=== PATIENT | female | born 1975 | race Caucasian/White ===

== ENCOUNTER 2019-09-24 16:16 | Inpatient (IN) ==
[2019-09-24] MEDS ORDERED: 0.9 % Sodium Chloride 1,000 ML IVC ONE (17:03)
[2019-09-24] MEDS ORDERED: Isovue-370 500 ML BOTTLE IVP ONE (17:31)
[2019-09-24 17:38] LABS: Bilirubin,Urine Negative (Negative); Blood,Urine Trace (Negative); Clarity,Urine Cloudy (Clear); Color,Urine Yellow (Yellow); Glucose,Urine (UA) Normal (Normal); Ketones,Urine Negative (Negative); Leukocyte Esterase,Urine Negative (Negative); Nitrite,Urine Negative (Negative); Protein,Urine Negative (Neg-Trace); Specific Gravity,Urine 1.012 (1.010-1.025); Urobilinogen,Urine Normal (Normal)
[2019-09-24 17:42] LABS: Bacteria,Urine None Seen per hpf (None-Few); Hyaline Casts,Urine None Seen per lpf (None-Few); RBC,Urine 0-3 per hpf (0-3); Squamous Epithelial Cell,Urine Moderate per lpf (None-Few); WBC,Urine 0-3 per hpf (0-3)
[2019-09-24 18:09] LABS: Amorphous Sediment,Urine Few (Few)
[2019-09-24 18:10] LABS: Basophils # 0.1 K/mcL (0.0-0.2); Basophils % 0.6 %; Eosinophils # 0.1 K/mcL (0.0-0.6); Hematocrit 39.6 % (35.3-44.9); Hemoglobin 13.2 g/dL (11.5-15.4); Immature Granulocytes % 0.3 % (0-4); Lymphocytes % 38.1 %; Mean Corpuscular HGB Conc 33.3 g/dL (31.6-35.5); Mean Corpuscular Volume 102.1 fL (83.0-100.0); Mean Platelet Volume 9.8 fL (9.4-12.4); Monocytes # 0.5 K/mcL (0.0-1.3); Monocytes % 6.7 %; Neutrophils # 4.2 K/mcL (1.6-8.9); Platelet Count 268 K/mcL (140-400); Red Blood Count 3.88 M/mcL (3.82-4.97); Red Cell Distribution Width 13.4 % (11.5-14.5); Segmented Neutrophils % 53.3 %; White Blood Count 7.9 K/mcL (4.3-11.1)
[2019-09-24] MEDS ORDERED: *HR* FentaNYL (PF) 100 MCG/2 ML VIAL IVP ONE (18:15)
[2019-09-24 18:18] LABS: Alanine Aminotransferase 10 Units/L (7-52); Albumin 4.8 g/dL (3.5-5.7); Albumin/Globulin Ratio 1.8 (1.1-2.2); Alkaline Phosphatase 72 Units/L (34-104); Aspartate Amino Transferase 16 Units/L (13-39); BUN/Creatinine Ratio 11 (6-26); Bilirubin,Total 0.4 mg/dL (0.3-1.0); Blood Urea Nitrogen 8 mg/dL (6-20); Calcium 9.8 mg/dL (8.6-10.3); Carbon Dioxide 26 mEq/L (23-29); Chloride 104 mEq/L (98-107); Globulin 2.7 g/dL (2.4-3.5); Glucose 86 mg/dL (70-105); Osmolality,Calculated 286 (280-300); Potassium 3.5 mEq/L (3.5-5.1); Sodium 139 mEq/L (136-145); Total Protein 7.5 g/dL (6.4-8.9); Troponin I < 0.03 ng/mL (< 0.04); eGFR For African Americans > 60 (> 60); eGFR For Non-African Americans > 60 (> 60)
[2019-09-24] MEDS ORDERED: Aspirin 325 MG TABLET PO ONE (20:39)
[2019-09-24] MEDS ORDERED: Naloxone 0.4 MG/ML INJ IVP PRN (23:11)
[2019-09-24] MEDS ORDERED: Promethazine 12.5 MG in 0.9 % Sodium Chloride 50 ML IVPB PRN (23:20)
[2019-09-25] MEDS: 0.9 % Sodium Chloride 1,000 ML IVC SCH ×2 (01:09→05:51)
[2019-09-25] MEDS: *HR* Promethazine 25 MG/ML VIAL IVP PRN ×2 (03:01→17:52)
[2019-09-25] MEDS: *HR* Heparin 5,000 UNIT/ML VIAL SQ SCH ×2 (06:08→18:26)
[2019-09-25 06:59] LABS: Hematocrit 31.4 % (35.3-44.9); Mean Corpuscular HGB Conc 33.1 g/dL (31.6-35.5); Mean Corpuscular Hemoglobin 34.2 pg (28.0-33.3); Mean Corpuscular Volume 103.3 fL (83.0-100.0); Mean Platelet Volume 9.9 fL (9.4-12.4); Platelet Count 209 K/mcL (140-400); Red Blood Count 3.04 M/mcL (3.82-4.97); Red Cell Distribution Width 13.3 % (11.5-14.5); White Blood Count 5.3 K/mcL (4.3-11.1)
[2019-09-25 07:09] LABS: Hemoglobin 10.4 g/dL (11.5-15.4)
[2019-09-25 07:19] LABS: Alanine Aminotransferase 7 Units/L (7-52); Albumin 3.1 g/dL (3.5-5.7); Albumin/Globulin Ratio 1.7 (1.1-2.2); Alkaline Phosphatase 53 Units/L (34-104); Aspartate Amino Transferase 13 Units/L (13-39); BUN/Creatinine Ratio 14 (6-26); Bilirubin,Total 0.3 mg/dL (0.3-1.0); Blood Urea Nitrogen 7 mg/dL (6-20); Calcium 7.7 mg/dL (8.6-10.3); Carbon Dioxide 25 mEq/L (23-29); Chloride 111 mEq/L (98-107); Globulin 1.8 g/dL (2.4-3.5); Glucose 81 mg/dL (70-105); Osmolality,Calculated 287 (280-300); Phosphorous 4.1 mg/dL (2.7-4.5); Potassium 3.6 mEq/L (3.5-5.1); Sodium 140 mEq/L (136-145); Total Protein 4.9 g/dL (6.4-8.9); eGFR For African Americans > 60 (> 60); eGFR For Non-African Americans > 60 (> 60)
[2019-09-25] MEDS ORDERED: NON-FORMULARY MEDICATION 1 EACH EACH (Diclofenac Sodium 1 APPL) TP PRN (09:52)
[2019-09-25] MEDS ORDERED: tiZANidine 4 MG TABLET PO PRN (09:52)
[2019-09-25] MEDS ORDERED: Ondansetron ODT 4 MG TAB.RAPDIS SL PRN (09:52)
[2019-09-25] MEDS ORDERED: SUMAtriptan succinate 50 MG TABLET PO PRN (09:52)
[2019-09-25] MEDS ORDERED: Cholestyramine 4 GM POWD.PACK PO PRN (09:52)
[2019-09-25] MEDS ORDERED: Simethicone 80 MG TAB.CHEW PO PRN (09:52)
[2019-09-25] MEDS ORDERED: Cyanocobalamin (B-12) 1,000 MCG/ML VIAL IM SCH (10:00)
[2019-09-25] MEDS ORDERED: D10% in Water 500 ML IVC PRN (11:07)
[2019-09-25] MEDS ORDERED: *HR* Dextrose 50 % in Water (Syg) 50 ML SYRINGE IVP PRN (11:28)
[2019-09-25] MEDS ORDERED: D5% in Water 1,000 ML IVC PRN (11:28)
[2019-09-25] MEDS ORDERED: Dextrose Gel 15 GM/37.5 ML TUBE PO PRN ×2 (11:28)
[2019-09-25] MEDS ORDERED: Lidocaine 4% CREAM (LMX) 5 GM TP ONE (11:36)
[2019-09-25] MEDS: Nicotine 21 MG PATCH.TD24 TD SCH (11:43)
[2019-09-25] MEDS: Famotidine 20 MG TABLET PO SCH (11:43)
[2019-09-25] MEDS: Insulin LISPRO 300 UNITS/3 ML VIAL SQ SCH ×3 (12:12→20:17)
[2019-09-25] MEDS: Tiotropium 18 MCG inhalation IH SCH (15:19)
[2019-09-25] MEDS ORDERED: Clinimix E 5%-15% SOLUTION 2,000 ML with MVI, adult with vitamin K 10 ML IVC SCH (17:00)
[2019-09-25] MEDS ORDERED: Acetaminophen IV 500 MG/50 ML INFUS..BTL IVPB ONE (23:53)
[2019-09-26] MEDS: Insulin LISPRO 300 UNITS/3 ML VIAL SQ SCH ×6 (01:03→21:02)
[2019-09-26] MEDS: *HR* Heparin 5,000 UNIT/ML VIAL SQ SCH ×2 (05:31→18:40)
[2019-09-26] MEDS: Nicotine 21 MG PATCH.TD24 TD SCH (07:56)
[2019-09-26] MEDS: Loratadine 10 MG TABLET PO SCH (07:57)
[2019-09-26] MEDS: Famotidine 20 MG TABLET PO SCH (07:57)
[2019-09-26] MEDS: Acetaminophen/Butalbital/CaffeineTABLET PO PRN (07:57)
[2019-09-26] MEDS: Cholecalciferol (D-3) 1,000 UNIT (25MCG) TABLET PO SCH (07:57)
[2019-09-26] MEDS: Tiotropium 18 MCG inhalation IH SCH (08:00)
[2019-09-26] MEDS ORDERED: NON-FORMULARY MEDICATION 1 EACH EACH (Tiotropium Br/Olodaterol Hcl [Stiolto Respimat Inhal IH SCH (09:00)
[2019-09-26 11:20] LABS: BUN/Creatinine Ratio 18 (6-26); Blood Urea Nitrogen 11 mg/dL (6-20); Calcium 8.6 mg/dL (8.6-10.3); Carbon Dioxide 25 mEq/L (23-29); Chloride 109 mEq/L (98-107); Glucose 91 mg/dL (70-105); Magnesium 1.8 mg/dL (1.6-2.6); Osmolality,Calculated 287 (280-300); Phosphorous 2.6 mg/dL (2.7-4.5); Sodium 139 mEq/L (136-145); Triglycerides 90 mg/dL (< 150); eGFR For African Americans > 60 (> 60); eGFR For Non-African Americans > 60 (> 60)
[2019-09-26] MEDS ORDERED: Clinimix E 5%-15% SOLUTION 2,000 ML with MVI, adult with vitamin K 10 ML IVC SCH (17:00)
[2019-09-27] MEDS: Insulin LISPRO 300 UNITS/3 ML VIAL SQ SCH ×6 (02:11→21:58)
[2019-09-27 04:45] LABS: BUN/Creatinine Ratio 25 (6-26); Blood Urea Nitrogen 14 mg/dL (6-20); Calcium 8.4 mg/dL (8.6-10.3); Carbon Dioxide 26 mEq/L (23-29); Chloride 106 mEq/L (98-107); Glucose 81 mg/dL (70-105); Magnesium 1.8 mg/dL (1.6-2.6); Osmolality,Calculated 288 (280-300); Phosphorous 3.4 mg/dL (2.7-4.5); Potassium 3.8 mEq/L (3.5-5.1); Sodium 139 mEq/L (136-145); eGFR For African Americans > 60 (> 60); eGFR For Non-African Americans > 60 (> 60)
[2019-09-27] MEDS: *HR* Heparin 5,000 UNIT/ML VIAL SQ SCH ×2 (05:54→16:06)
[2019-09-27] MEDS: Nicotine 21 MG PATCH.TD24 TD SCH (08:54)
[2019-09-27] MEDS: Famotidine 20 MG TABLET PO SCH (08:56)
[2019-09-27] MEDS: Loratadine 10 MG TABLET PO SCH (08:57)
[2019-09-27] MEDS: Cholecalciferol (D-3) 1,000 UNIT (25MCG) TABLET PO SCH (08:57)
[2019-09-27] MEDS: Tiotropium 18 MCG inhalation IH SCH (09:55)
[2019-09-27] MEDS: *HR* Promethazine 25 MG/ML VIAL IVP PRN (13:59)
[2019-09-27] MEDS ORDERED: Isovue-370 500 ML BOTTLE IVP ONE (14:14)
[2019-09-27] MEDS ORDERED: Clinimix E 5%-20% SOLUTION 2,000 ML with MVI, adult with vitamin K 10 ML IVC SCH (17:00)
[2019-09-28] MEDS: Acetaminophen/Butalbital/CaffeineTABLET PO PRN ×2 (00:49→22:21)
[2019-09-28] MEDS: Insulin LISPRO 300 UNITS/3 ML VIAL SQ SCH ×7 (01:20→23:27)
[2019-09-28 05:21] LABS: BUN/Creatinine Ratio 21 (6-26); Blood Urea Nitrogen 12 mg/dL (6-20); Calcium 8.5 mg/dL (8.6-10.3); Carbon Dioxide 26 mEq/L (23-29); Chloride 104 mEq/L (98-107); Glucose 97 mg/dL (70-105); Magnesium 1.9 mg/dL (1.6-2.6); Osmolality,Calculated 286 (280-300); Phosphorous 4.2 mg/dL (2.7-4.5); Potassium 3.7 mEq/L (3.5-5.1); Sodium 138 mEq/L (136-145); eGFR For African Americans > 60 (> 60); eGFR For Non-African Americans > 60 (> 60)
[2019-09-28] MEDS: *HR* Heparin 5,000 UNIT/ML VIAL SQ SCH ×2 (05:48→17:04)
[2019-09-28] MEDS: Famotidine 20 MG TABLET PO SCH (05:51)
[2019-09-28] MEDS: Cholecalciferol (D-3) 1,000 UNIT (25MCG) TABLET PO SCH (07:26)
[2019-09-28] MEDS: Loratadine 10 MG TABLET PO SCH (07:27)
[2019-09-28] MEDS: Nicotine 21 MG PATCH.TD24 TD SCH (07:28)
[2019-09-28] MEDS: *HR* Promethazine 25 MG/ML VIAL IVP PRN ×2 (07:29→17:06)
[2019-09-28] MEDS: Cyanocobalamin (B-12) 1,000 MCG/ML VIAL IM SCH (07:43)
[2019-09-28] MEDS: Tiotropium 18 MCG inhalation IH SCH (08:18)
[2019-09-28] MEDS ORDERED: D10% in Water 500 ML IVC PRN (13:03)
[2019-09-28] MEDS ORDERED: Clinimix E 5%-20% SOLUTION 2,000 ML with MVI, adult with vitamin K 10 ML IVC SCH (17:00)
[2019-09-29] MEDS: Insulin LISPRO 300 UNITS/3 ML VIAL SQ SCH ×6 (03:49→23:53)
[2019-09-29] MEDS: *HR* Heparin 5,000 UNIT/ML VIAL SQ SCH ×2 (04:53→17:24)
[2019-09-29 05:18] LABS: BUN/Creatinine Ratio 25 (6-26); Blood Urea Nitrogen 14 mg/dL (6-20); Calcium 8.5 mg/dL (8.6-10.3); Carbon Dioxide 26 mEq/L (23-29); Chloride 105 mEq/L (98-107); Glucose 78 mg/dL (70-105); Magnesium 1.9 mg/dL (1.6-2.6); Osmolality,Calculated 285 (280-300); Phosphorous 3.7 mg/dL (2.7-4.5); Potassium 3.8 mEq/L (3.5-5.1); Sodium 138 mEq/L (136-145); eGFR For African Americans > 60 (> 60); eGFR For Non-African Americans > 60 (> 60)
[2019-09-29] MEDS: Tiotropium 18 MCG inhalation IH SCH (07:21)
[2019-09-29] MEDS: Nicotine 21 MG PATCH.TD24 TD SCH (07:35)
[2019-09-29] MEDS: Loratadine 10 MG TABLET PO SCH (07:35)
[2019-09-29] MEDS: Cholecalciferol (D-3) 1,000 UNIT (25MCG) TABLET PO SCH (07:35)
[2019-09-29] MEDS: Cyanocobalamin (B-12) 1,000 MCG/ML VIAL IM SCH (07:35)
[2019-09-29] MEDS: Famotidine 20 MG TABLET PO SCH (07:35)
[2019-09-29] MEDS ORDERED: Ketorolac 30 MG/ML VIAL IVP ONE ×2 (07:50→10:32)
[2019-09-29] MEDS: *HR* Promethazine 25 MG/ML VIAL IVP PRN ×2 (13:24→20:54)
[2019-09-29] MEDS ORDERED: Clinimix E 5%-20% SOLUTION 2,000 ML with MVI, adult with vitamin K 10 ML IVC SCH (17:00)
[2019-09-30] MEDS ORDERED: Acetaminophen IV 500 MG/50 ML INFUS..BTL IVPB ONE (01:47)
[2019-09-30] MEDS: *HR* Heparin 5,000 UNIT/ML VIAL SQ SCH (03:43)
[2019-09-30] MEDS: Insulin LISPRO 300 UNITS/3 ML VIAL SQ SCH ×4 (03:43→15:32)
[2019-09-30 05:52] LABS: BUN/Creatinine Ratio 23 (6-26); Blood Urea Nitrogen 14 mg/dL (6-20); Calcium 8.4 mg/dL (8.6-10.3); Carbon Dioxide 26 mEq/L (23-29); Chloride 104 mEq/L (98-107); Glucose 97 mg/dL (70-105); Osmolality,Calculated 284 (280-300); Phosphorous 4.2 mg/dL (2.7-4.5); Potassium 3.9 mEq/L (3.5-5.1); Sodium 137 mEq/L (136-145); eGFR For African Americans > 60 (> 60); eGFR For Non-African Americans > 60 (> 60)
[2019-09-30] MEDS: *HR* Promethazine 25 MG/ML VIAL IVP PRN (08:47)
[2019-09-30] MEDS: Nicotine 21 MG PATCH.TD24 TD SCH (08:50)
[2019-09-30] MEDS: Loratadine 10 MG TABLET PO SCH (08:51)
[2019-09-30] MEDS: Cholecalciferol (D-3) 1,000 UNIT (25MCG) TABLET PO SCH (08:51)
[2019-09-30] MEDS: Famotidine 20 MG TABLET PO SCH (08:51)
[2019-09-30] MEDS ORDERED: Acetaminophen IV 1,000 MG/100 ML INFUS..BTL IVPB ONE (09:30)
[2019-09-30] MEDS: Cyanocobalamin (B-12) 1,000 MCG/ML VIAL IM SCH (09:35)
[2019-09-30] MEDS: Tiotropium 18 MCG inhalation IH SCH (11:33)
[2019-09-30 16:00] VITALS: BP 97/65
[2019-09-30] MEDS ORDERED: Clinimix E 5%-20% SOLUTION 2,000 ML with MVI, adult with vitamin K 10 ML IVC SCH (17:00)
== END 2019-09-30 17:37 | disposition home health service (06) | DRG 249 ==
LOC: 3BNU 16:16 → EMEROOARM 16:16 → 3BNU 21:48 → SUATTDRO 09-26 17:02
PROVIDERS: ADMIT Family Medicine; ATTEND Internal Medicine

== ENCOUNTER 2019-11-03 16:38 | Observation (INO) ==
[2019-11-03 18:40] LABS: Bilirubin,Urine Negative (Negative); Blood,Urine Negative (Negative); Clarity,Urine Clear (Clear); Color,Urine Yellow (Yellow); Glucose,Urine (UA) Normal (Normal); Ketones,Urine Negative (Negative); Leukocyte Esterase,Urine Negative (Negative); Nitrite,Urine Negative (Negative); Protein,Urine Negative (Neg-Trace); Specific Gravity,Urine 1.023 (1.010-1.025); Urobilinogen,Urine Normal (Normal)
[2019-11-03] MEDS ORDERED: 0.9 % Sodium Chloride 1,000 ML IVC ONE (19:00)
[2019-11-03] MEDS ORDERED: Isovue-370 500 ML BOTTLE IVP ONE (19:01)
[2019-11-03 19:33] LABS: Basophils # 0.1 K/mcL (0.0-0.2); Basophils % 0.7 %; Eosinophils # 0.2 K/mcL (0.0-0.6); Eosinophils % 1.7 %; Hematocrit 36.2 % (35.3-44.9); Hemoglobin 12.5 g/dL (11.5-15.4); Immature Granulocytes % 0.3 % (0-4); Immature Platelets 4.5 % (1.1-6.1); Lymphocytes # 2.4 K/mcL (0.6-4.6); Lymphocytes % 25.7 %; Mean Corpuscular HGB Conc 34.5 g/dL (31.6-35.5); Mean Corpuscular Hemoglobin 34.2 pg (28.0-33.3); Mean Corpuscular Volume 99.2 fL (83.0-100.0); Mean Platelet Volume 10.1 fL (9.4-12.4); Monocytes # 0.6 K/mcL (0.0-1.3); Monocytes % 6.3 %; Neutrophils # 6.2 K/mcL (1.6-8.9); Platelet Count 253 K/mcL (140-400); Red Blood Count 3.65 M/mcL (3.82-4.97); Red Cell Distribution Width 13.2 % (11.5-14.5); Segmented Neutrophils % 65.3 %; White Blood Count 9.5 K/mcL (4.3-11.1)
[2019-11-03] MEDS ORDERED: *HR* FentaNYL (PF) 100 MCG/2 ML VIAL IVP ONE ×2 (19:37→23:39)
[2019-11-03 19:46] LABS: INR 1.1; Prothrombin Time 12.3 Seconds (9.4-12.1)
[2019-11-03 19:55] LABS: Alanine Aminotransferase 20 Units/L (7-52); Albumin 4.1 g/dL (3.5-5.7); Albumin/Globulin Ratio 1.5 (1.1-2.2); Alkaline Phosphatase 65 Units/L (34-104); Amylase 46 Units/L (29-103); Aspartate Amino Transferase 21 Units/L (13-39); BUN/Creatinine Ratio 19 (6-26); Bilirubin,Indirect 0.3 mg/dL (0.0-1.0); Bilirubin,Total 0.3 mg/dL (0.3-1.0); Blood Urea Nitrogen 12 mg/dL (6-20); Calcium 9.3 mg/dL (8.6-10.3); Carbon Dioxide 24 mEq/L (23-29); Chloride 105 mEq/L (98-107); Globulin 2.7 g/dL (2.4-3.5); Glucose 80 mg/dL (70-105); Lipase 36 Units/L (11-82); Osmolality,Calculated 289 (280-300); Potassium 3.6 mEq/L (3.5-5.1); Sodium 140 mEq/L (136-145); Total Protein 6.8 g/dL (6.4-8.9); Troponin I < 0.03 ng/mL (< 0.04); eGFR For African Americans > 60 (> 60); eGFR For Non-African Americans > 60 (> 60)
[2019-11-03] MEDS ORDERED: Promethazine 25 MG in 0.9 % Sodium Chloride 50 ML IVPB ONE (23:34)
[2019-11-04] MEDS ORDERED: Ketorolac 30 MG/ML VIAL IVP PRN (04:43)
[2019-11-04] MEDS ORDERED: Naloxone 0.4 MG/ML INJ IVP PRN (04:43)
[2019-11-04] MEDS ORDERED: Ondansetron 4 MG/2 ML VIAL IVP PRN (04:43)
[2019-11-04] MEDS: 0.9 % Sodium Chloride 1,000 ML IVC SCH ×2 (05:03→14:31)
[2019-11-04] MEDS ORDERED: Morphine Sulfate 2 MG/ML SYRINGE IVP PRN (06:17)
[2019-11-04 06:18] LABS: Hematocrit 30.7 % (35.3-44.9); Hemoglobin 10.2 g/dL (11.5-15.4); Mean Corpuscular HGB Conc 33.2 g/dL (31.6-35.5); Mean Corpuscular Volume 102.3 fL (83.0-100.0); Mean Platelet Volume 10.3 fL (9.4-12.4); Platelet Count 231 K/mcL (140-400); Red Cell Distribution Width 13.2 % (11.5-14.5); White Blood Count 5.5 K/mcL (4.3-11.1)
[2019-11-04 06:33] LABS: BUN/Creatinine Ratio 26 (6-26); Blood Urea Nitrogen 14 mg/dL (6-20); Calcium 8.4 mg/dL (8.6-10.3); Carbon Dioxide 26 mEq/L (23-29); Chloride 108 mEq/L (98-107); Glucose 82 mg/dL (70-105); Osmolality,Calculated 290 (280-300); Potassium 3.7 mEq/L (3.5-5.1); Sodium 140 mEq/L (136-145); eGFR For African Americans > 60 (> 60); eGFR For Non-African Americans > 60 (> 60)
[2019-11-04 06:34] LABS: Magnesium 1.8 mg/dL (1.6-2.6); Phosphorous 4.3 mg/dL (2.7-4.5)
[2019-11-04] MEDS ORDERED: (Diclofenac Sodium 1 APPL) TP PRN (07:42)
[2019-11-04] MEDS ORDERED: Pantoprazole 40 MG VIAL IVP SCH (09:00)
[2019-11-04] MEDS: Morphine Sulfate 2 MG/ML SYRINGE IVP PRN ×3 (10:32→22:41)
[2019-11-04] MEDS ORDERED: D10% in Water 500 ML IVC PRN (12:19)
[2019-11-04 12:47] LABS: Hematocrit 30.2 % (35.3-44.9); Hemoglobin 10.2 g/dL (11.5-15.4)
[2019-11-04] MEDS ORDERED: tiZANidine 4 MG TABLET PO PRN (13:14)
[2019-11-04] MEDS ORDERED: SUMAtriptan succinate 50 MG TABLET PO PRN (13:14)
[2019-11-04] MEDS ORDERED: Simethicone 80 MG TAB.CHEW PO PRN (13:14)
[2019-11-04] MEDS ORDERED: Acetaminophen/Butalbital/CaffeineTABLET PO PRN (13:14)
[2019-11-04] MEDS: Nicotine 21 MG PATCH.TD24 TD SCH (15:11)
[2019-11-04] MEDS ORDERED: Clinimix E 5%-20% SOLUTION 2,000 ML with MVI, adult with vitamin K 10 ML IVC SCH ×3 (17:00→21:00)
[2019-11-04] MEDS: Acetaminophen IV 1,000 MG/100 ML INFUS..BTL IVPB SCH ×2 (17:04→23:48)
[2019-11-04] MEDS: *HR* Promethazine 25 MG/ML VIAL IVP PRN (17:04)
[2019-11-05 03:26] LABS: VBG Ionized Calcium 1.22 mmol/L (1.15-1.35)
[2019-11-05 03:29] LABS: Hematocrit 29.5 % (35.3-44.9); Hemoglobin 10.1 g/dL (11.5-15.4); Mean Corpuscular HGB Conc 34.2 g/dL (31.6-35.5); Mean Corpuscular Hemoglobin 34.4 pg (28.0-33.3); Mean Corpuscular Volume 100.3 fL (83.0-100.0); Mean Platelet Volume 9.8 fL (9.4-12.4); Platelet Count 247 K/mcL (140-400); Red Blood Count 2.94 M/mcL (3.82-4.97); Red Cell Distribution Width 13.2 % (11.5-14.5)
[2019-11-05 03:47] LABS: Alanine Aminotransferase 25 Units/L (7-52); Albumin 3.1 g/dL (3.5-5.7); Albumin/Globulin Ratio 1.6 (1.1-2.2); Alkaline Phosphatase 58 Units/L (34-104); Aspartate Amino Transferase 24 Units/L (13-39); BUN/Creatinine Ratio 23 (6-26); Bilirubin,Total 0.2 mg/dL (0.3-1.0); Blood Urea Nitrogen 14 mg/dL (6-20); Calcium 8.2 mg/dL (8.6-10.3); Carbon Dioxide 26 mEq/L (23-29); Chloride 111 mEq/L (98-107); Glucose 106 mg/dL (70-105); Magnesium 1.6 mg/dL (1.6-2.6); Osmolality,Calculated 283 (280-300); Phosphorous 3.8 mg/dL (2.7-4.5); Potassium 3.7 mEq/L (3.5-5.1); Sodium 136 mEq/L (136-145); Total Protein 5.1 g/dL (6.4-8.9); Triglycerides 93 mg/dL (< 150); eGFR For African Americans > 60 (> 60); eGFR For Non-African Americans > 60 (> 60)
[2019-11-05] MEDS: Acetaminophen IV 1,000 MG/100 ML INFUS..BTL IVPB SCH ×2 (05:31→12:56)
[2019-11-05] MEDS ORDERED: Loratadine 10 MG TABLET PO SCH (09:00)
[2019-11-05] MEDS ORDERED: NON-FORMULARY MEDICATION 1 EACH EACH (Tiotropium Br/Olodaterol Hcl [Stiolto Respimat Inhal IH SCH (09:00)
[2019-11-05] MEDS ORDERED: Cholecalciferol (D-3) 1,000 UNIT (25MCG) TABLET PO SCH (09:00)
[2019-11-05] MEDS: Nicotine 21 MG PATCH.TD24 TD SCH (09:12)
[2019-11-05] MEDS: *HR* Promethazine 25 MG/ML VIAL IVP PRN (09:12)
[2019-11-05] MEDS ORDERED: Tiotropium 18 MCG inhalation IH SCH (10:00)
[2019-11-05] MEDS ORDERED: Albuterol 2.5 MG/3 ML NEBULIZER IH SCH (10:00)
[2019-11-05] MEDS: Morphine Sulfate 2 MG/ML SYRINGE IVP PRN (10:31)
[2019-11-05 10:51] VITALS: BP 91/57
== END 2019-11-05 12:59 | disposition home or self-care (01) ==
LOC: EMEROOARM 16:38 → 3ANU 16:38 → SUATTDRO 11-04 01:05 → 3ANU 11-04 01:30
PROVIDERS: ADMIT Internal Medicine; ATTEND Internal Medicine